=== PATIENT | female | born 1955 | race Caucasian/White ===

== ENCOUNTER 2016-10-13 03:24 | Emergency (ER) | payer OTHER ==
[2016-10-13 04:09] VITALS: BP 156/111
[2016-10-13] MEDS ORDERED: Bacitracin Oint 1 GM U/D Packet ONE (04:20)
[2016-10-13] MEDS ORDERED: Bacitracin Oint 1 GM U/D Packet TOP ONE (04:20)
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
== END 2016-10-13 04:33 | disposition home or self-care (01) ==
LOC: JP.ED 03:24
DX: S01.01XA Laceration without foreign body of scalp, initial encounter (principal); I10 Essential (primary) hypertension; E78.00 Pure hypercholesterolemia, unspecified; K21.9 Gastro-esophageal reflux disease without esophagitis; F32.9 Major depressive disorder, single episode, unspecified; Z79.899 Other long term (current) drug therapy; Z88.8 Allergy status to other drugs, medicaments and biological substances; W22.8XXA Striking against or struck by other objects, initial encounter
CPT/HCPCS: 12002; 12013; 99283-25

== ENCOUNTER 2022-01-02 14:03 | Emergency (ER) | payer MEDICARE, OTHER ==
[2022-01-02] MEDS ORDERED: Lidocaine 1% with EPINEPHrine 1:100,000 50 ML MDV INFILT STA (14:38)
[2022-01-02] MEDS ORDERED: Bacitracin Oint 1 GM U/D Packet TOP ONE (14:38)
[2022-01-02 14:46] VITALS: BP 130/92; PULSE 85
[2022-01-02] MEDS ORDERED: Diphtheria,Pertussis(Acell),Tetanus Vaccine 0.5 ML Syringe IM ONE (15:51)
== END 2022-01-02 16:38 | disposition home or self-care (01) ==
LOC: JP.ED 14:03
DX: S62.631A Displaced fracture of distal phalanx of left index finger, initial encounter for closed fracture (principal); S61.211A Laceration without foreign body of left index finger without damage to nail, initial encounter; I10 Essential (primary) hypertension; E78.00 Pure hypercholesterolemia, unspecified; K21.9 Gastro-esophageal reflux disease without esophagitis; Z88.8 Allergy status to other drugs, medicaments and biological substances; Z23 Encounter for immunization; W27.0XXA Contact with workbench tool, initial encounter; Y99.0 Civilian activity done for income or pay
CPT/HCPCS: 12001; 73140-F1; 90471; 90715; 99281; 99283-25

== ENCOUNTER 2024-06-03 08:12 | Emergency (ER) | payer MEDICARE ==
[2024-06-03 09:13] VITALS: BP 141/96; PULSE 90
[2024-06-03 09:47] LABS: BASOPHILS ABSOLUTE AUTO 0.03 K/uL (0.00-0.10); BASOPHILS PERCENT AUTO 0.2 % (0.1-1.3); EOSINOPHILS PERCENT AUTO 0.1 % (0.0-5.4); IMMATURE GRAN ABSOLUTE AUTO 0.05 K/uL (0.00-0.23); IMMATURE GRAN PERCENT AUTO 0.3 % (0.0-0.7); LYMPHOCYTES ABSOLUTE AUTO 0.49 K/uL (0.8-3.3); LYMPHOCYTES PERCENT AUTO 3.4 % (11.4-47.7); MEAN CORPUSCULAR HEMOGLOBIN 31.2 pg (31.6-35.5); MEAN CORPUSCULAR VOLUME 91.6 fL (81.4-99.0); MONOCYTES ABSOLUTE AUTO 0.84 K/uL (0.20-0.90); MONOCYTES PERCENT AUTO 5.8 % (3.3-12.6); NEUTROPHILS ABSOLUTE AUTO 13.05 K/uL (1.0-7.6); NEUTROPHILS PERCENT AUTO 90.2 % (40.0-78.1); PLATELET COUNT,PLT 221 K/uL (130-375); RED BLOOD CELL COUNT 5.13 M/uL (3.77-5.24); WHITE BLOOD CELL COUNT,WBC 14.5 K/uL (3.2-11.0)
[2024-06-03 09:48] LABS: EOSINOPHILS ABSOLUTE AUTO 0.01 K/uL (0.00-0.40)
[2024-06-03] MEDS ORDERED: Sodium Chloride 0.9% 10 ML Syringe FLUSH ONE (09:49)
[2024-06-03] MEDS: Acetaminophen/Codeine 300-30 MG Tab PO ONE (09:54)
[2024-06-03 10:02] LABS: CALCIUM 9.8 mg/dL (8.5-10.1); CREATININE 1.2 mg/dL (0.6-1.0); EST CRCL DRUG DOSING (CG) 61.43 mL/min; POTASSIUM,K 4.5 mmol/L (3.6-5.2)
[2024-06-03 10:03] LABS: ANION GAP 18.5 mmol/L (5.0-14.0)
[2024-06-03 10:04] LABS: PROTHROMBIN TIME 10.6 sec (9.2-10.6)
[2024-06-03] MEDS: Iopamidol 612 MG/ML 100 ML Bottle IV SCH (10:06)
[2024-06-03] MEDS: Sodium Chloride 0.9% 80 ML IV SCH (10:06)
[2024-06-03] MEDS ORDERED: Naloxone 0.4 MG/ML SDV IVPUSH PRN (10:08)
[2024-06-03] MEDS ORDERED: HYDROmorphone 1 MG/ML Syringe IVPUSH ONE (10:08)
[2024-06-03] MEDS: Ketorolac 30 MG/ML SDV IVPUSH ONE (10:19)
== END 2024-06-03 11:45 | disposition home or self-care (01) ==
LOC: JP.ED 08:12
DX: S22.41XA Multiple fractures of ribs, right side, initial encounter for closed fracture (principal); I10 Essential (primary) hypertension; E78.00 Pure hypercholesterolemia, unspecified; Z79.899 Other long term (current) drug therapy; Z88.8 Allergy status to other drugs, medicaments and biological substances; W01.0XXA Fall on same level from slipping, tripping and stumbling without subsequent striking against object, initial encounter
CPT/HCPCS: 36415; 71260; 80048; 85025; 85610; 96374; 99284; A9270; J1885; J3490; Q9967

== ENCOUNTER 2024-12-30 14:02 | Emergency (ER) | payer MEDICARE ==
[2024-12-30 15:04] VITALS: BP 140/82; PULSE 92
[2024-12-30] MEDS: Bacitracin Oint 1 GM U/D Packet TOP ONE (17:15)
== END 2024-12-30 17:20 | disposition home or self-care (01) ==
LOC: JP.ED 14:02
DX: S61.316A Laceration without foreign body of right little finger with damage to nail, initial encounter (principal); I10 Essential (primary) hypertension; K21.9 Gastro-esophageal reflux disease without esophagitis; E78.00 Pure hypercholesterolemia, unspecified; Z79.899 Other long term (current) drug therapy; W31.2XXA Contact with powered woodworking and forming machines, initial encounter
CPT/HCPCS: 11760; 73140; 99283; A4217; J0665